=== PATIENT | male | born 1975 | race Caucasian/White ===

== ENCOUNTER 2018-05-01 16:32 | Emergency (ER) | payer BC ==
[2018-05-01 17:27] VITALS: BP 120/87
--- NOTE | 2018-05-01 18:01 | UC ---
Throat Pain/Nasal Ori HPI - HPI Summary HPI Summary: Per payroll and benefits assistant "Sinus congestion x2 days and dry cough. Sore throat started last night. Hurts to swallow. Headache present. Daughter diagnosed with pneumonia recently. " -sx started about 12-13 hrs ago. took ibuprofen this morning w/ significantr relief. no sinus pain. has a GROSS b/l forehead. no rash. no ear pain. no cough or wheezing - History of Current Complaint Chief Complaint: UCGeneralIllness Stated Complaint: ST/CONGESTION Time Seen by Provider: 05/01/18 17:22 Pain Intensity: 2 - Allergies/Home Medications Allergies/Adverse Reactions: Allergies Allergy/AdvReac Type Severity Reaction Status Date / Time codeine Allergy Hallucinati Verified 05/01/18 17:23 ons Home Medications: Home Medications Ibuprofen TAB* [Advil TAB*] 600 mg PO Q6H PRN 05/01/18 [History Confirmed ] PMH/Surg Hx/FS Hx/Imm Hx Previously Healthy: Yes - Surgical History Surgical History: Yes Surgery Procedure, Year, and Place: eye [id number] implanted. 1994 - right eye surgery for glaucoma. 1990- left knee arthroscopy. 1986-multiple eye surgeries - Family History Known Family History: Positive: Respiratory Disease - pneumonia - Social History Alcohol Use: Occasionally Substance Use Type: Marijuana Substance Use Comment - Amount & Last Used: occasional Smoking Status (MU): Never Smoked Tobacco Review of Systems All Other Systems Reviewed And Are Negative: Yes Constitutional: Positive: Negative, Fatigue Skin: Positive: Negative Eyes: Positive: Negative ENT: Positive: Sore Throat, Nasal Discharge Respiratory: Positive: Negative Cardiovascular: Positive: Negative Gastrointestinal: Positive: Negative Genitourinary: Positive: Negative Motor: Positive: Negative Neurovascular: Positive: Negative Musculoskeletal: Positive: Negative Neurological: Positive: Negative Psychological: Positive: Negative Is Patient Immunocompromised?: No Physical Exam Triage Information Reviewed: Yes Appearance: Well-Appearing, No Pain Distress, Well-Nourished Vital Signs: Initial Vital Signs Temp 97.0 F 05/01/18 17:23 Pulse 75 05/01/18 17:23 Resp 16 05/01/18 17:23 BP 120/87 05/01/18 17:23 Pulse Ox 98 05/01/18 17:23 Eye Exam: Normal ENT: Positive: Pharyngeal erythema - + PND, no exudate. no abscess. voice nml., Nasal drainage, TMs normal, Uvula midline. Negative: TM bulging, TM dull, TM red, Tonsillar swelling, Tonsillar exudate, Sinus tenderness Neck exam: Normal Neck: Positive: Supple, Nontender, No Lymphadenopathy Respiratory Exam: Normal Respiratory: Positive: Lungs clear, Normal breath sounds, No respiratory distress, No accessory muscle use. Negative: Crackles, Rhonchi, Stridor, Wheezing Cardiovascular Exam: Normal Cardiovascular: Positive: RRR, No Murmur, Pulses Normal, Brisk Capillary Refill Abdominal Exam: Normal Abdomen Description: Positive: Nontender, Soft Bowel Sounds: Positive: Present Musculoskeletal Exam: Normal Neurological Exam: Normal Psychological Exam: Normal Skin Exam: Normal Throat Pain/Nasal Course/Dx - Course Course Of Treatment: rapid strep is negative. -no e/o bacterial infection in sx of 12 hrs. -agreeable w/ plan. nsaids, rest - Differential Dx/Diagnosis Differential Diagnosis/HQI/PQRI: Peritonsillar Abscess, Pharyngitis, Tonsillitis , URI Provider Diagnosis: Pharyngitis Discharge - Sign-Out/Discharge Documenting (check all that apply): Patient Departure All imaging exams completed and their final reports reviewed: No Studies - Discharge Plan Condition: Stable Disposition: HOME Patient Education Materials: Pharyngitis (ED) Referrals: No Primary Care Phys,NOPCP [Primary Care Provider] - 5 Days [facility] [Provider Group] Additional Instructions: Throat culture is negative for strep. There is no evidence for any bacterial infection. Continue taking the ibuprofen for the pain/discomfort. You should follow up sooner if your symptoms worsen or change. - Billing Disposition and Condition Condition: STABLE Disposition: Home
== END 2018-05-01 18:33 | disposition home or self-care (01) ==
LOC: UCCORT 16:32
DX: J02.9 Acute pharyngitis, unspecified (principal); Z88.5 Allergy status to narcotic agent
CPT/HCPCS: 87651; 99201; G0463

== ENCOUNTER 2019-02-13 20:55 | Emergency (ER) | payer BC ==
[2019-02-13 21:08] VITALS: BP 118/79
--- NOTE | 2019-02-13 21:16 | UC ---
Skin Complaint HPI - HPI Summary HPI Summary: PT REMOVED A TICK FROM HIS LEFT UPPER BACK. HE HAD BEEN IN THE [employer] [place] TODAY. PT STATES HE WAS IN A HOUSE THAT HAD TICKS ON FRIDAY OF LAST WEEK.HIS CHECKED HIM FOR TICKS ON THAT DAY AND NONE WERE FOUND. - History of Current Complaint Chief Complaint: UCSkin Time Seen by Provider: 02/13/19 21:12 Stated Complaint: TICK BITE Hx Obtained From: Patient Onset/Duration: Sudden Onset, Lasting Hours Skin Exposure Onset/Duration: Hours Ago Timing: Constant Onset Severity: Mild Current Severity: None Pain Intensity: 0 Location: Discrete Related History: Insect Bite/Sting - Allergy/Home Medications Allergies/Adverse Reactions: Allergies Allergy/AdvReac Type Severity Reaction Status Date / Time codeine Allergy Hallucinati Verified 02/13/19 21:03 ons PMH/Surg Hx/FS Hx/Imm Hx Previously Healthy: Yes - Surgical History Surgical History: Yes Surgery Procedure, Year, and Place: eye [id number] implanted. 1994 - right eye surgery for glaucoma. 1990- left knee arthroscopy. 1986-multiple eye surgeries - Family History Known Family History: Positive: Respiratory Disease - pneumonia - Social History Alcohol Use: Occasionally Substance Use Type: Marijuana Substance Use Comment - Amount & Last Used: occasional Smoking Status (MU): Never Smoked Tobacco Review of Systems All Other Systems Reviewed And Are Negative: Yes Skin: Positive: Other - tick bite Is Patient Immunocompromised?: No Physical Exam Triage Information Reviewed: Yes Appearance: Well-Appearing, No Pain Distress, Well-Nourished Vital Signs: Initial Vital Signs Temp 98.8 F 02/13/19 21:04 Pulse 81 02/13/19 21:04 Resp 17 02/13/19 21:04 BP 118/79 02/13/19 21:04 Pulse Ox 99 02/13/19 21:04 Vital Signs Reviewed: Yes Eye Exam: Normal ENT Exam: Normal Dental Exam: Normal Neck exam: Normal Respiratory Exam: Normal Cardiovascular Exam: Normal Abdominal Exam: Normal Skin: Positive: Other - wood tick removed from patients back, no redness or erythema Course/Dx - Course Course Of Treatment: hx obtained, exam performed ,meds reviewed, given one time dose of doxy - Differential Diagnoses - Skin Complaint Differential Diagnoses: Tick Born Illness - Diagnoses Provider Diagnosis: Tick bite of back Discharge ED - Sign-Out/Discharge Documenting (check all that apply): Patient Departure All imaging exams completed and their final reports reviewed: No Studies - Discharge Plan Condition: Stable Disposition: HOME Patient Education Materials: Tick Bite (ED) Referrals: Alysha Joel PA [Primary Care Provider] - Additional Instructions: 1. pickup driver the doxycycline at the pharmacy 2. to be taken as one dose. - Billing Disposition and Condition Condition: STABLE Disposition: Home
== END 2019-02-13 21:17 | disposition home or self-care (01) ==
LOC: UCCORT 20:55
DX: S20.462A Insect bite (nonvenomous) of left back wall of thorax, initial encounter (principal); Z88.5 Allergy status to narcotic agent; W57.XXXA Bitten or stung by nonvenomous insect and other nonvenomous arthropods, initial encounter; Y92.9 Unspecified place or not applicable
CPT/HCPCS: 99212; G0463